=== PATIENT | female | born 1970 | race Caucasian/White ===

== ENCOUNTER 2019-04-22 19:38 | Emergency (ER) | payer OTHER ==
[~2019-04-22] VITALS: Ht 152.4 cm; Wt 110.0 kg
[2019-04-22 19:51] VITALS: BP 143/82; TEMP 97.5
[2019-04-22 23:17] VITALS: PULSE 72
== END 2019-04-22 23:17 | disposition home or self-care (01) ==
LOC: COL.ER 19:38
DX: S43.52XA Sprain of left acromioclavicular joint, initial encounter (principal); F17.210 Nicotine dependence, cigarettes, uncomplicated; W01.0XXA Fall on same level from slipping, tripping and stumbling without subsequent striking against object, initial encounter; Y92.69 Other specified industrial and construction area as the place of occurrence of the external cause; Y99.0 Civilian activity done for income or pay

== ENCOUNTER 2019-04-29 19:01 | Emergency (ER) | payer OTHER ==
[~2019-04-29] VITALS: Ht 160 cm; Wt 110.0 kg
[2019-04-29] MEDS ORDERED: NORCO 325 MG-51 TAB PO ×2 (19:25→20:20)
[2019-04-29] MEDS ORDERED: PREDNISONE20 MG PO (20:20)
[2019-04-29 20:40] VITALS: BP 135/78; PULSE 85; TEMP 98.2
== END 2019-04-29 20:45 | disposition home or self-care (01) ==
LOC: COL.ER 19:01
DX: S43.401A Unspecified sprain of right shoulder joint, initial encounter (principal); W19.XXXA Unspecified fall, initial encounter; Y92.59 Other trade areas as the place of occurrence of the external cause
CPT/HCPCS: J7512

== ENCOUNTER 2019-12-05 10:38 | Emergency (ER) | payer OTHER ==
[~2019-12-05] VITALS: Ht 160 cm; Wt 114.5 kg
[~2019-12-05 10:38] MED LIST: NORCO 325 MG-51 TAB PO; PREDNISONE20 MG PO
[2019-12-05 10:40] VITALS: TEMP 98.5
[2019-12-05] MEDS ORDERED: TYLENOL 325MG325 MG PO (11:25)
[2019-12-05] MEDS ORDERED: ULTRAM 50MG TAB50 MG PO (11:25)
[2019-12-05] MEDS ORDERED: PERCOCET 325 MG1 TA2 PO (11:54)
[2019-12-05 12:39] VITALS: BP 129/66; PULSE 75
== END 2019-12-05 13:10 | disposition home or self-care (01) ==
LOC: COL.ER 10:38
DX: G89.18 Other acute postprocedural pain (principal); M25.512 Pain in left shoulder
CPT/HCPCS: J1885

== ENCOUNTER 2021-01-16 14:29 | Emergency (ER) | payer SELFPAY ==
[~2021-01-16] VITALS: Ht 162.6 cm; Wt 114.1 kg
[~2021-01-16 14:29] MED LIST changes: +PERCOCET 325 MG1 TA2 PO; +TYLENOL 325MG325 MG PO; +ULTRAM 50MG TAB50 MG PO
[2021-01-16 14:55] VITALS: TEMP 97.9
[2021-01-16] MEDS ORDERED: ALEVE 220MG220 MG PO (15:02)
[2021-01-16] MEDS ORDERED: ASPIRIN 81M81 MG/TA2 PO (15:03)
[2021-01-16 17:56] VITALS: BP 122/85; PULSE 88
== END 2021-01-16 17:56 | disposition home or self-care (01) ==
LOC: COL.ER 14:29
DX: S20.212A Contusion of left front wall of thorax, initial encounter (principal); S80.212A Abrasion, left knee, initial encounter; F17.200 Nicotine dependence, unspecified, uncomplicated; W07.XXXA Fall from chair, initial encounter

== ENCOUNTER → 2022-04-11 | Outpatient (CLI) | payer SELFPAY ==
[~2022-04-11] MED LIST changes: +ALEVE 220MG220 MG PO; +ASPIRIN 81M81 MG/TA2 PO
== END ==
LOC: COL.RAD 08:30
DX: R13.10 Dysphagia, unspecified (principal)